=== PATIENT | male | born 1950 | race Caucasian/White ===

== ENCOUNTER → 2023-07-22 | Outpatient (CLI) | payer MEDICARE ==
[2023-07-26 12:29] LABS: APTIMA MEDIA TYPE Urine; C. TRACHOMATIS BY TMA Negative (Negative); N. GONORRHOEAE BY TMA Negative (Negative); SPECIMEN SOURCE Urine; T. VAGINALIS BY TMA Negative (Negative)
== END | disposition home or self-care (01) ==
LOC: LAB 12:37 → LAB SHORT 12:37
PROVIDERS: Physician Assistant
DX: Z20.9 Contact with and (suspected) exposure to unspecified communicable disease (principal)
CPT/HCPCS: 87491; 87591; 87661

== ENCOUNTER → 2023-07-22 | Outpatient (CLI) | payer MEDICARE, OTHER ==
[2023-07-24 17:54] LABS: HIV 1,2 COMBO ANTIGEN/ANTIBODY Negative (Negative)
[2023-07-26 07:24] LABS: HSV 1 SUBTYPE BY PCR Not Detected; HSV 2 SUBTYPE BY PCR Not Detected; HSV SUBTYPE SOURCE Blood
== END | disposition home or self-care (01) ==
LOC: LAB 12:28 → LAB SHORT 12:28
PROVIDERS: Physician Assistant
DX: Z20.9 Contact with and (suspected) exposure to unspecified communicable disease (principal)
CPT/HCPCS: 86592; 87389; 87529

== ENCOUNTER 2024-04-05 23:32 | Emergency (ER) | payer MEDICARE, OTHER ==
[~2024-04-05] VITALS: Ht 180.3 cm; Wt 102.1 kg
[~2024-04-05 23:32] MED LIST: ACET500 PO; AMLODIPINE BESYL5 MG PO; ATOR40TA PO; BACLOFEN PO; CALCITRIOL0.5 MC1 PO; CARVEDILOL25 M9 PO; CATAPRES0.1 MG PO; DEPO-TESTO200 MG/18 IM; DODEX1000 MCG/3 IM; DULOXETINE HCL60 M1 PO; HYDCHL25 PO; HYDMOR2 PO; LOSARTAN POTAS100 M1 PO; MIRALAX17 GM PO; PAXLOVID 300-11 EAC1 PO; SILDENAFIL CITR50 MG PO; STIOLTO RESPIMAT4 G1 INH; SULTRIDS PO; TAMSULOSIN HCL0.4 M1 PO; TRUVADA 100 MG1 EAC1 PO; VISBIOME 112.51 EACH PO
[2024-04-05 23:38] VITALS: BP 104/80
[2024-04-06] MEDS ORDERED: Indomethacin 25 MG Cap PO ONE (00:25)
[2024-04-06] MEDS ORDERED: PredniSONE 20 MG Tab PO ONE (00:25)
[2024-04-06] MEDS ORDERED: Prednisone20 MG PO (00:28)
[2024-04-06] MEDS ORDERED: INDO50 PO (00:28)
== END 2024-04-06 00:49 | disposition home or self-care (01) ==
LOC: ER 23:32
DX: M1A.9XX0 Chronic gout, unspecified, without tophus (tophi) (principal); I12.9 Hypertensive chronic kidney disease with stage 1 through stage 4 chronic kidney disease, or unspecified chronic kidney disease; N18.30 Chronic kidney disease, stage 3 unspecified; J44.9 Chronic obstructive pulmonary disease, unspecified; E78.5 Hyperlipidemia, unspecified; Z79.899 Other long term (current) drug therapy; Z91.040 Latex allergy status
CPT/HCPCS: 99282; A9270; J7512

== ENCOUNTER 2024-09-10 06:20 | Day surgery (SDC) | payer MEDICARE, OTHER ==
[~2024-09-10] VITALS: Ht 180.3 cm; Wt 99.4 kg
[~2024-09-10 06:20] MED LIST changes: +ALBU90OI INH; +ATOR10 PO; +BACL10 PO; +CARV25 PO; +INDO50 PO; +LISI20 PO; +Lactated Ringer's 1,000 ML IV ONE; +Prednisone20 MG PO; +Ropinirole HCl5 MG PO
[2024-09-10] MEDS ORDERED: CeFAZolin Sodium 2,000 MG VIAL ONE (06:32)
[2024-09-10] MEDS ORDERED: AMLO5 PO (06:43)
[2024-09-10] MEDS ORDERED: ALLO100 PO (06:43)
[2024-09-10] MEDS ORDERED: POTA10T PO (06:43)
[2024-09-10] MEDS ORDERED: DEPO-TESTO200 MG/14 IM (06:45)
[2024-09-10] MEDS ORDERED: Lactated Ringer's 1,000 ML IV ONE (06:55)
[2024-09-10] MEDS ORDERED: Dexamethasone Sod Phos 10 MG/ML 1ML VIAL ONE (07:03)
[2024-09-10] MEDS ORDERED: Ondansetron HCl 2 MG / ML 2ML Vial ONE (07:03)
[2024-09-10] MEDS ORDERED: FentaNYL Citrate 50 MCG/ML 2 ML Injection ONE (07:03)
[2024-09-10] MEDS ORDERED: Midazolam HCl 1MG / ML 2ML Vial ONE (07:03)
[2024-09-10] MEDS ORDERED: propofoL 20 ML IV ONE (07:06)
--- NOTE | 2024-09-10 07:34 | NUR ---
09/10/24 0734 Kia Friedman TIME OUT PERFORMED AT BEDSIDE WITH DR SOLORZANO AT 0717, PREOP AXILLARY NERVE BLOCK STARTED AT 0723 AND ENDED AT 0728. PT ON 2L O2 VIA N/C AND SPO2 AND HR MONITORED THROUGHOUT PROCEDURE. PT TOLERATED PROCEDURE WELL.
[2024-09-10] MEDS ORDERED: Glycopyrrolate 0.2 MG/ML 5ML VIAL ONE (07:40)
[2024-09-10] MEDS ORDERED: Ketorolac Tromethamine 30mg Vial ONE (07:40)
[2024-09-10] MEDS ORDERED: ePHEDrine Sulfate 50 MG/ML 1ML Injection ONE (08:03)
[2024-09-10 09:15] VITALS: BP 128/79
--- NOTE | 2024-09-10 09:17 | NUR ---
09/10/24 0917 Lilly Lewis PT IN CHAIR AT THIS TIME. OP SITE ON PILLOW WITH ICE AT THE ELBOW. PT TOLERATING PO FLUIDS WELL; PT DENIES NAUSEA. PT DENIES PAIN AT THIS TIME. PT IS ON 2L O2 VIA NASAL CANNULA FOR SATS 90-92%. RN LEFT VOICEMAIL FOR THIS PT'S PARTNER. INCENTIVE SPIROMETER TEACHING PROVIDED.
== END 2024-09-10 09:57 | disposition home or self-care (01) ==
LOC: ORSCSDS 06:20
DX: M18.12 Unilateral primary osteoarthritis of first carpometacarpal joint, left hand (principal); M65.4 Radial styloid tenosynovitis [de Quervain]; I10 Essential (primary) hypertension; G47.33 Obstructive sleep apnea (adult) (pediatric); J44.9 Chronic obstructive pulmonary disease, unspecified; Z87.891 Personal history of nicotine dependence; Z79.899 Other long term (current) drug therapy; E66.9 Obesity, unspecified; Z68.30 Body mass index [BMI] 30.0-30.9, adult
CPT/HCPCS: C1713; J0690; J1100; J1885; J2250; J2405; J2704; J3010; J7120

== ENCOUNTER 2025-01-17 11:21 | Day surgery (SDC) | payer MEDICARE, OTHER ==
[~2025-01-17] VITALS: Ht 180.3 cm; Wt 98.7 kg
[~2025-01-17 11:21] MED LIST changes: +ALLO100 PO; +AMLO5 PO; +DEPO-TESTO200 MG/14 IM; -Lactated Ringer's 1,000 ML IV ONE; +POTA10T PO
[2025-01-17] MEDS ORDERED: Lidocaine HCl 2% 10 ML SDA ONE (12:05)
[2025-01-17] MEDS ORDERED: DODEX1000 MCG/3 (13:02)
[2025-01-17] MEDS ORDERED: Midazolam HCl 1MG / ML 2ML Vial ONE (13:09)
[2025-01-17] MEDS ORDERED: FentaNYL Citrate 50 MCG/ML 2 ML Injection ONE (13:09)
[2025-01-17] MEDS ORDERED: CeFAZolin Sodium 2,000 MG VIAL ONE (13:12)
[2025-01-17] MEDS ORDERED: NS 100 ML IV ONE (13:12)
--- NOTE | 2025-01-17 13:33 | NUR ---
01/17/25 1333 JAYLEEN RAMIREZ T/O W/ DR QUEVEDO ANESTH. FOR CERVICAL BLOCK 1324 BUPIVACAINE/DEXAMETHAZONE START BLOCK:1326 END BLOCK:1331 O2 100% 3L NC HR 63 BPM VERSED 2MG IV BY DR QUEVEDO
--- NOTE | 2025-01-17 14:44 | NUR ---
01/17/25 1444 Yahaira Mario REPORT RECEIVED FROM ADIEL AND RN. PT ASLEEP UPON ARRIVAL TO PACU, AROUSABLE TO VOICE. VSS. SLING IN PLACE, SPLINT INTACT. PT PLACED ON 2L BNC AFTER ARRIVAL TO PACU. PT DENIES NAUSEA. FOLLOWS COMMANDS AND ANSWERS QUESTIONS AT THIS TIME. 94% ON 2L BNC. IV PATENT
[2025-01-17] MEDS ORDERED: Ondansetron HCl 2 MG / ML 2ML Vial ONE (14:58)
[2025-01-17 15:09] VITALS: BP 131/74
--- NOTE | 2025-01-17 15:10 | NUR ---
01/17/25 1510 Yahaira Mario REPORT GIVEN TO MARLA KENT
== END 2025-01-17 16:15 | disposition home or self-care (01) ==
LOC: ORSCSDS 11:21
PROVIDERS: Orthopaedic Surgery
PROC: 0RQS0ZZ Repair Right Carpometacarpal Joint, Open Approach (ICD-10-PCS; principal; 2025-01-17 13:30)
PROC: 0LN50ZZ Release Right Lower Arm and Wrist Tendon, Open Approach (ICD-10-PCS; principal; 2025-01-17 13:30)
DX: M18.11 Unilateral primary osteoarthritis of first carpometacarpal joint, right hand (principal); M65.4 Radial styloid tenosynovitis [de Quervain]; I10 Essential (primary) hypertension; E78.5 Hyperlipidemia, unspecified; G47.33 Obstructive sleep apnea (adult) (pediatric); E66.9 Obesity, unspecified; Z68.30 Body mass index [BMI] 30.0-30.9, adult; Z79.899 Other long term (current) drug therapy
CPT/HCPCS: C1713; J0690; J2003; J2250; J2405; J2704; J3010; J7120